=== PATIENT | male | born 1975 | race Caucasian/White ===

== ENCOUNTER 2017-07-11 13:56 | Emergency (ER) | payer SELFPAY ==
[~2017-07-11] VITALS: Ht 172.7 cm; Wt 79.1 kg
[2017-07-11] MEDS ORDERED: IBUPROFEN 800 MG TABLET PO ONE (15:45)
[2017-07-11] MEDS ORDERED: AZITHROMYCIN 250 MG TABLET PO ONE (15:45)
[2017-07-11] MEDS ORDERED: CefTRIAXone SODIUM 1 GM/VIAL IM ONE (15:45)
[2017-07-11] MEDS ORDERED: LIDOCAINE HCL 1% 10 ML VIAL INJ ONE (16:00)
[2017-07-11 16:14] LABS: GLUCOSE, URINE (UA) NEGATIVE (NEGATIVE); KETONES,URINE NEGATIVE (NEGATIVE); LEUKOCYTE ESTERASE ,URINE SMALL (NEGATIVE); OCCULT BLOOD,URINE NEGATIVE (NEGATIVE); PROTEIN,URINE NEGATIVE (NEGATIVE)
[2017-07-11 16:29] LABS: ADD UA MICROSCOPIC YES; APPEARANCE,URINE HAZY (CLEAR); WBC,URINE 0-2 /HPF (0-5)
[2017-07-11 16:43] VITALS: BP 144/82
== END 2017-07-11 16:47 | disposition home or self-care (01) ==
LOC: EMS 13:59
DX: N45.3 Epididymo-orchitis (principal); R03.0 Elevated blood-pressure reading, without diagnosis of hypertension; N43.3 Hydrocele, unspecified
CPT/HCPCS: 76870; 81001; 96372; 99285; J0696; J3490

== ENCOUNTER 2017-10-09 09:39 | Emergency (ER) | payer MEDICAID ==
[~2017-10-09] VITALS: Ht 172.7 cm; Wt 79.1 kg
[2017-10-09] MEDS ORDERED: HYDROCODONE/ACETAMINOPHEN 5-325 MG TABLET PO ONE (10:15)
[2017-10-09] MEDS ORDERED: AZITHROMYCIN 250 MG TABLET PO ONE (10:15)
[2017-10-09] MEDS ORDERED: CefTRIAXone SODIUM 1 GM/VIAL IM ONE (10:15)
[2017-10-09 11:07] LABS: APPEARANCE,URINE CLEAR (CLEAR); BILIRUBIN,URINE NEGATIVE (NEGATIVE); GLUCOSE, URINE (UA) NEGATIVE (NEGATIVE); KETONES,URINE NEGATIVE (NEGATIVE); LEUKOCYTE ESTERASE ,URINE NEGATIVE (NEGATIVE); NITRATE,URINE NEGATIVE (NEGATIVE); OCCULT BLOOD,URINE NEGATIVE (NEGATIVE); PROTEIN,URINE NEGATIVE (NEGATIVE); UROBILINOGEN,URINE 0.2 mg/dL (<=1.0)
[2017-10-09 11:09] LABS: BACTERIA,URINE None Seen /HPF (None Seen); RBC,URINE None Seen /HPF (0-2); WBC,URINE None Seen /HPF (0-5)
[2017-10-09 11:31] VITALS: BP 138/88
== END 2017-10-09 11:43 | disposition home or self-care (01) ==
LOC: EMS 09:41
DX: N45.1 Epididymitis (principal)
CPT/HCPCS: 81001; 87491; 87591; 96372; 99284; J0696